=== PATIENT | female | born 1975 | race Caucasian/White ===

== ENCOUNTER → 2017-01-13 | Outpatient (CLI) | payer OTHER ==
--- NOTE | ~2017-01-13 | MY11 ---
[facility] A Service of [facility] RADIOLOGY TEXT RESULTS PATIENT: TERESA RICO LOCATION: [facility] : 75 UNIT #: [id number] AGE: [address]: Rafael Luna MD SEX: F ORDER DR: [id number] [facility] [address] [place], [place] [address] [id number] O MR#: [id number] Acc #: [id number] NAME: TERESA RICO : 1975 SEX: F STUDY DATE/TIME: 01/13/2017 10:08 UNIT: [facility] ROOM: STUDY DESCRIPTION: MY Mammogram Screening Dig Shree Attending Physician: Rafael Noyola M.D. Ordering Physician: Rafael Noyola M.D. Primary Care Physician: Rafael Noyola M.D. MEDICAL IMAGING REPORT This report is preliminary unless electronic signature is present EXAM Bilateral digital screening mammogram with CAD 01/13/2017 INDICATION 41-year-old female for routine screening. No reported problems. No personal history of breast cancer. Family history positive in a maternal grandmother. No surgeries. TECHNIQUE CC and MLO views of the breasts were obtained and reviewed with an FDA-approved CAD device. There are no comparisons. This is her baseline study (last mammogram was over 20 years ago). FINDINGS Breast parenchyma is composed of scattered fibroglandular densities. The pattern is symmetric. There is no dominant nodule, mass or suspicious cluster of microcalcifications. Serpiginous vessels present bilaterally. IMPRESSION Negative screening mammogram. 1-year followup recommended. Patients over the age of 40 are entered into a reminder system with target due date for the next mammogram. A result letter will also be sent to the patient. BIRADS: 1 Negative Dictated by... Zen Don M.D. THIS IS AN ELECTRONICALLY VERIFIED REPORT Zen Don M.D. at 01/13/2017 4:51 PM [facility] A Service of [facility] RADIOLOGY TEXT RESULTS PATIENT: TERESA RICO LOCATION: [facility] : 75 UNIT #: [id number] AGE: [address]: Rafael Luna MD SEX: F ORDER DR: LIONEL/jarad TD: 01/13/2017 12:42 JOB #: [id number] MEDICAL IMAGING REPORT COPY
== END | disposition home or self-care (01) ==
LOC: CWCC 09:41
DX: Z12.31 Encounter for screening mammogram for malignant neoplasm of breast (principal); Z80.3 Family history of malignant neoplasm of breast
CPT/HCPCS: G0202